=== PATIENT | male | born 1930 | race Caucasian/White ===

== ENCOUNTER 2016-08-02 00:17 | Emergency (ER) | payer OTHER ==
[~2016-08-02] VITALS: Ht 162.6 cm; Wt 44.7 kg
[~2016-08-02 00:17] MED LIST: ASPIR 8181 M1 PO; ATARAX,VISTARIL25 MG PO; ATORVASTATIN CA80 MG PO; BACTRIM,SEPT1 TABLET PO; CARDIZEM CD,CA240 MG PO; CENTRUM CHEWAB1 EACH PO; CHILDREN'S ASPI81 M1 PO; CITRACAL-VIT D1 EACH PO; COUMADIN,JANTO2.5 MG PO; COUMADIN2.5 MG PO; COUMADIN5 MG PO; Cardizem CD,Cartia X PO; DAILY MULTIPLE1 EAC2 PO; DUONEB3 ML IH; FISH OIL 1,0001 EAC7 PO; FISH OIL CONC1 EACH PO; FLAGYL500 MG PO; FUROSEMIDE40 MG PO; HYDROXYZINE HCL25 MG PO; K-DUR20 MEQ PO; LASIX20 MG PO; LASIX40 MG PO; LIPITOR PO; LIPITOR80 MG PO; LOTREL 5-40 MG1 EACH PO; LOVENOX60 MG/0.6 SC; Lasix PO; METOPROLOL TART25 MG PO; MULTIVITAMIN1 EAC2 PO; OS-CAL 500+D T1 EAC1 PO; SIMVASTATIN80 M1 PO; TAB-A-VITE1 EACH PO; TOPROL XL100 MG PO; TRAMADOL HCL50 MG PO; Theragran-M,Centrum, PO; VITAMIN D3 PO; VITAMIN D31000 UNI2 PO; WARFARIN SODIUM; WARFARIN SODIUM1 MG PO; WARFARIN SODIUM2 MG PO; Zocor PO
[2016-08-02 01:04] LABS: EOSINOPHIL (%) 1.4 % (0-5); EOSINOPHIL COUNT 0.2 K/uL (0-0.3); IMMATURE GRANULOCYTE (%) 0.6 % (0.0-0.7); IMMATURE GRANULOCYTE COUNT 0.1 K/uL; INSTRUMENT ABS NEUTROPHIL CT 10.6 K/uL; LYMPHOCYTE COUNT 1.4 K/uL (1.0-2.8); MCH 29.2 PG (29.0-34.0); MCHC 32.1 G/DL (30.0-36.0); MCV 91.1 FL (86-99); MEAN PLAT.VOLUME 10.8 uM^3 (9.0-12.4); MONOCYTE (%) 7.5 % (3-12); NEUTROPHIL (%) 79.9 % (45-76); NEUTROPHIL COUNT 10.6 K/uL (1.8-6.4); PLATELET COUNT 263 K/uL (156-360); RBC DIS.WIDTH-CV 14.7 % (11.8-14.6); RBC DIS.WIDTH-SD 49.5 % (39-53); RED BLOOD COUNT 4.28 M/uL (4.00-5.50); WHITE BLOOD COUNT 13.3 K/uL (4.1-10.2)
[2016-08-02 01:18] LABS: CHLORIDE 107 mEq/L (99-109); POTASSIUM 4.6 mEq/L (3.7-5.4); SODIUM 145 mEq/L (136-147)
[2016-08-02 01:20] LABS: GLUCOSE 187 mg/dL (70-99)
[2016-08-02 01:21] LABS: ANION GAP 18 MEQ/L (2-14)
[2016-08-02 01:22] LABS: TOTAL BILIRUBIN 0.8 mg/dL (0.0-1.0)
[2016-08-02 01:23] LABS: ALKALINE PHOSPHATASE 117 IU/L (3-129); SERUM ETHYL ALCOHOL < 10 mg/dL
[2016-08-02 01:24] LABS: GFR ESTIMATE (CALCULATED) 36 mL/min/
[2016-08-02 01:25] LABS: UREA NITROGEN (BUN) 34 mg/dL (9-23)
[2016-08-02 02:00] LABS: TROP-I INTERPRETATION NEGATIVE; TROPONIN-I 0.02 ng/mL (0.0-0.30)
[2016-08-02 02:33] LABS: ADD MIUA? YES; BILIRUBIN NEGATIVE; BLOOD SMALL; COLOR YELLOW ((YELLOW)); GLUCOSE (STRIP) NEGATIVE; KETONES NEGATIVE; LEUKOCYTES NEGATIVE; NITRITE NEGATIVE; PROTEIN (STRIP) NEGATIVE; SPECIFIC GRAVITY 1.012 (1.000-1.030); UROBILINOGEN 0.2 MG/DL (0.2-1.0)
[2016-08-02 02:42] LABS: BACTERIA NONE SEEN /HPF; EPITHELIAL CELLS RARE /HPF; GRANULAR CASTS 0-5 /LPF; HYALINE CASTS 30-40 /LPF; MUCUS TRACE /LPF; RED BLOOD CELLS 0-5 /HPF (0-5); UCUL ADDED? NO; WHITE BLOOD CELLS 0-5 /HPF (0-5)
[2016-08-02 02:44] LABS: AMPHETAMINE NEGATIVE (500 ng/mL); BARBITURATES NEGATIVE (200 ng/mL); BENZODIAZEPINES NEGATIVE (150 ng/mL); COCAINE NEGATIVE (150 ng/mL); INTERNAL CONTROLS VALID? YES; METHADONE NEGATIVE (200 ng/mL); METHAMPHETAMINE NEGATIVE (500 ng/mL); OPIATES (MORPHINE) NEGATIVE (100 ng/mL); OXYCODONE NEGATIVE (100 ng/mL); PHENCYCLIDINE NEGATIVE (25 ng/mL); PROPOXYPHENE NEGATIVE (300 ng/mL); THC CANNABINOIDS NEGATIVE (50 ng/mL); TRICYCLIC ANTIDEPRESSANTS NEGATIVE (300 ng/mL)
[2016-08-02] MEDS ORDERED: CLINDAMYCIN HC300 MG PO (07:08)
[2016-08-02 07:28] VITALS: BP 122/57
[2016-08-02 09:55] LABS: TREPONEMA ANTIBODY NEGATIVE (NEGATIVE)
== END 2016-08-02 07:57 | disposition home or self-care (01) ==
LOC: EME → EDBD 00:17 → EME 07:57
PROVIDERS: Emergency Medicine
DX: R45.1 Restlessness and agitation (principal); R45.6 Violent behavior; F02.81 Dementia in other diseases classified elsewhere, unspecified severity, with behavioral disturbance; E86.0 Dehydration; D72.829 Elevated white blood cell count, unspecified; I48.91 Unspecified atrial fibrillation; I11.0 Hypertensive heart disease with heart failure; I50.9 Heart failure, unspecified; Z78.1 Physical restraint status; Z79.01 Long term (current) use of anticoagulants; Z87.442 Personal history of urinary calculi; Z95.1 Presence of aortocoronary bypass graft; Z88.0 Allergy status to penicillin
CPT/HCPCS: 70450; 71010; 80053; 80164; 81003; 84443; 84484; 85025; 86780; 90839; 93005; 99281; 99285; G0480; J1630; J2060

== ENCOUNTER 2016-08-19 14:45 | Emergency (ER) | payer OTHER ==
[~2016-08-19] VITALS: Ht 165.1 cm; Wt 55.1 kg
[~2016-08-19 14:45] MED LIST changes: +CLINDAMYCIN HC300 MG PO
[2016-08-19 15:48] LABS: EOSINOPHIL (%) 3.9 % (0-5); EOSINOPHIL COUNT 0.3 K/uL (0-0.3); HEMATOCRIT 36.1 % (38.0-50.0); IMMATURE GRANULOCYTE (%) 0.5 % (0.0-0.7); INSTRUMENT ABS NEUTROPHIL CT 5.9 K/uL; LYMPHOCYTE COUNT 1.4 K/uL (1.0-2.8); MCH 29.1 PG (29.0-34.0); MCHC 32.7 G/DL (30.0-36.0); MCV 89.1 FL (86-99); MEAN PLAT.VOLUME 10.1 uM^3 (9.0-12.4); MONOCYTE (%) 9.3 % (3-12); MONOCYTE COUNT 0.8 K/uL (0-0.8); NEUTROPHIL (%) 69.2 % (45-76); NEUTROPHIL COUNT 5.9 K/uL (1.8-6.4); PLATELET COUNT 257 K/uL (156-360); RBC DIS.WIDTH-CV 14.7 % (11.8-14.6); RBC DIS.WIDTH-SD 47.8 % (39-53); RED BLOOD COUNT 4.05 M/uL (4.00-5.50)
[2016-08-19 15:49] LABS: WHITE BLOOD COUNT 8.6 K/uL (4.1-10.2)
[2016-08-19 15:55] LABS: CHLORIDE 111 mEq/L (99-109); POTASSIUM 4.3 mEq/L (3.7-5.4); SODIUM 142 mEq/L (136-147)
[2016-08-19 15:57] LABS: GLUCOSE 88 mg/dL (70-99)
[2016-08-19 15:58] LABS: ANION GAP 5 MEQ/L (2-14)
[2016-08-19 15:59] LABS: ADD MIUA? NO; BILIRUBIN NEGATIVE; BLOOD NEGATIVE; COLOR YELLOW ((YELLOW)); GLUCOSE (STRIP) NEGATIVE; KETONES 5; LEUKOCYTES NEGATIVE; NITRITE NEGATIVE; PROTEIN (STRIP) NEGATIVE; SPECIFIC GRAVITY 1.015 (1.000-1.030); UCUL ADDED? NO; UROBILINOGEN 0.2 MG/DL (0.2-1.0)
[2016-08-19 16:00] VITALS: BP 124/70
[2016-08-19 16:01] LABS: GFR ESTIMATE (CALCULATED) 47 mL/min/
[2016-08-19 16:02] LABS: UREA NITROGEN (BUN) 21 mg/dL (9-23)
[2016-08-19 16:08] LABS: TROP-I INTERPRETATION NEGATIVE; TROPONIN-I 0.04 ng/mL (0.0-0.30)
== END 2016-08-19 20:25 ==
LOC: EME 14:45
PROVIDERS: Emergency Medicine
DX: F03.91 Unspecified dementia, unspecified severity, with behavioral disturbance (principal); Z87.442 Personal history of urinary calculi; K21.9 Gastro-esophageal reflux disease without esophagitis; I10 Essential (primary) hypertension; Z95.1 Presence of aortocoronary bypass graft
CPT/HCPCS: 70450; 71010; 80048; 81003; 84484; 85025; 93005; 99281; 99284